=== PATIENT | male | born 1950 | race African-American/Black ===

== ENCOUNTER 2018-08-26 15:53 | Emergency (ER) | payer OTHER ==
[~2018-08-26] VITALS: Ht 175.3 cm; Wt 83.5 kg
[~2018-08-26 15:53] MED LIST: CYCL10TA2 PO; NAPR-695 PO
--- NOTE | 2018-08-26 17:23 | PHYS DOC ---
Past Medical History Past Medical History: No Pertinent History Past Surgical History: Other Additional Past Surgical Histo: bilat cataract surgery Alcohol Use: Occasionally Drug Use: None Adult General Chief Complaint Chief Complaint: GROIN PAIN HPI HPI Patient is a 68 year old male presents to the ER with right-sided groin pain has been ongoing for 6 months. 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 The patient states his pain as 4 out of 10 and intermittent in nature. Denies any fever. Not tried any medications at home. Review of Systems Review of Systems Constitutional: Denies fever or chills [] Eyes: Denies change in visual acuity, redness, or eye pain [] HENT: Denies nasal congestion or sore throat [] Respiratory: Denies cough or shortness of breath [] Cardiovascular: No additional information not addressed in HPI [] GI: Denies abdominal pain, nausea, vomiting, bloody stools or diarrhea [] : Denies dysuria or hematuria [] Musculoskeletal: Reports lower right back pain but denies joint pain [] Integument: Denies rash or skin lesions [] Neurologic: Denies headache, focal weakness or sensory changes [] Endocrine: Denies polyuria or polydipsia [] Complete systems were reviewed and found to be within normal limits, except as documented in this note. Allergies Allergies Allergies Coded Allergies Type Severity Reaction Last Updated Verified No Known Drug Allergies 08/26/18 No Physical Exam Physical Exam Constitutional: Well developed, well nourished, no acute distress, non-toxic appearance. [] HENT: Normocephalic, atraumatic, bilateral external ears normal, oropharynx moist, no oral exudates, nose normal. [] Eyes: PERRLA, EOMI, conjunctiva normal, no discharge. [] Neck: Normal range of motion, no tenderness, supple, no stridor. [] Cardiovascular:Heart rate regular rhythm, no murmur [] Lungs & Thorax: Bilateral breath sounds clear to auscultation [] Abdomen: Bowel sounds normal, soft, no tenderness, no masses, no pulsatile masses. [] Skin: Warm, dry, no erythema, no rash. [] Back: Lower right tenderness, no CVA tenderness. [] : Non tender on palpation, no rash or other abnormalities noted. Extremities: No tenderness, no cyanosis, no clubbing, ROM intact, no edema. [] Neurologic: Alert and oriented X 3, normal motor function, normal sensory function, no focal deficits noted. [] Psychologic: Affect normal, judgement normal, mood normal. [] Current Patient Data Vital Signs Vital Signs Date Time Temp Pulse Resp B/P (MAP) Pulse Ox O2 Delivery O2 Flow Rate FiO2 08/26/18 18:00 64 18 130/63 (85) 98 Room Air 08/26/18 16:50 97.8 97.8 Lab Values Laboratory Tests Test 08/26/18 18:00 Urine Collection Type Unknown Urine Color Yellow Urine Clarity Cloudy Urine pH 6.0 Urine Specific [place] 1.025 Urine Protein Negative mg/dL (NEG-TRACE) Urine Glucose (UA) Negative mg/dL (NEG) Urine Ketones (Stick) Negative mg/dL (NEG) Urine Blood Trace (NEG) Urine Nitrite Negative (NEG) Urine Bilirubin Negative (NEG) Urine Urobilinogen Dipstick 1.0 mg/dL (0.2 mg/dL) Urine Leukocyte Esterase Negative (NEG) Urine RBC 0 /HPF (0-2) Urine WBC 0 /HPF (0-4) Urine Bacteria 0 /HPF (0-FEW) Urine Mucus Mod /LPF EKG EKG [] Radiology/Procedures Radiology/Procedures [][address] [address] IMAGING REPORT Signed PATIENT: RAYSA PORTILLO ACCOUNT: [id number] : 1950 LOCATION: ER AGE: 68 SEX: M EXAM STATUS: REG ER ORD. PHYSICIAN: GRAY JOHN APRN REASON: RT GROIN AND SCROTAL PAIN PROCEDURE: TESTICULAR/SCROTUM Scrotal ultrasound 08/26/2018 CLINICAL HISTORY: Right groin and scrotal pain for months. TECHNIQUE: Using a combination of real-time ultrasound imaging and color-flow and pulse Doppler imaging techniques, duplex evaluation of the scrotal sac and its contents was performed. Multiple images were obtained. FINDINGS: Both testicles are within normal limits in size and echogenicity. The right testicle measures 4.3 x 3.0 x 1.7 cm in longitudinal, transverse, and AP dimensions. The left testicle measures 4.4 x 2.6 x 1.9 cm in size. No focal abnormality of either testicle is seen. Normal color-flow and pulse Doppler imaging to both testicles is noted. Both epididymal heads are within normal limits in size and echogenicity. No hydrocele or varicocele is seen. Additional real-time ultrasound examination of the right inguinal region was performed. No hernia is seen. Prominent reactive right inguinal lymph nodes are seen which measure 1.5 to 2.6 cm in size. IMPRESSION: Negative study. Electronically signed by: Jesus Diaz MD (08/26/2018 6:22 PM) [facility] DICTATED and SIGNED BY: JESUS DIAZ MD DATE: 08/26/181821 Course & Med Decision Making Course & Med Decision Making Pertinent Labs and Imaging studies reviewed. (See chart for details) Will get ultrasound, and UA. Patient is agreeable. Ultrasound is negative. Urine is negative. GC Chlamydia is pending. Will d/c home. Dragon Disclaimer Dragon Disclaimer This electronic medical record was generated, in whole or in part, using a voice recognition dictation system. Departure Departure Impression: Primary Impression: Groin pain Disposition: HOME, SELF-CARE Condition: STABLE Referrals: RUDY BRYAN (PCP) Patient Instructions: Groin Strain Additional Instructions: Thank you for visiting [facility]. We appreciate you trusting us with your care. If any additional problems come up don't hesitate to return to visit us. Please follow up with your primary care provider so they can plan additional care if needed and know about the problem that you had. If symptoms worsen come back to the Emergency Department. Any concerning symptoms that start such as chest pain, shortness of Air, weakness or numbness on one side of the body, running high fevers or any other concerning symptoms return to the ER. Problem Qualifiers Primary Impression: Groin pain Laterality: unspecified laterality Qualified Codes: R10.30 - Lower abdominal pain, unspecified GRAY JOHN APRN Aug 26, 2018 17:22
[2018-08-26 18:00] VITALS: BP 130/63
[2018-08-26 18:08] LABS: BILIRUBIN,URINE NEGATIVE (NEG); CLARITY,URINE CLOUDY; COLOR,URINE YELLOW; NITRITE,URINE NEGATIVE (NEG); PROTEIN,URINE NEGATIVE (NEG-TRACE)
[2018-08-26 18:15] LABS: BACTERIA,URINE 0 /HPF (0-FEW); RBC,URINE 0 /HPF (0-2); WBC,URINE 0 /HPF (0-4)
--- NOTE | 2018-08-26 18:25 | RAD ---
Scrotal ultrasound 08/26/2018 CLINICAL HISTORY: Right groin and scrotal pain for months. TECHNIQUE: Using a combination of real-time ultrasound imaging and color-flow and pulse Doppler imaging techniques, duplex evaluation of the scrotal sac and its contents was performed. Multiple images were obtained. FINDINGS: Both testicles are within normal limits in size and echogenicity. The right testicle measures 4.3 x 3.0 x 1.7 cm in longitudinal, transverse, and AP dimensions. The left testicle measures 4.4 x 2.6 x 1.9 cm in size. No focal abnormality of either testicle is seen. Normal color-flow and pulse Doppler imaging to both testicles is noted. Both epididymal heads are within normal limits in size and echogenicity. No hydrocele or varicocele is seen. Additional real-time ultrasound examination of the right inguinal region was performed. No hernia is seen. Prominent reactive right inguinal lymph nodes are seen which measure 1.5 to 2.6 cm in size. IMPRESSION: Negative study. Electronically signed by: Jesus Diaz MD (08/26/2018 6:22 PM) [facility]
== END 2018-08-26 18:35 | disposition home or self-care (01) ==
LOC: ER 15:53
DX: R10.30 Lower abdominal pain, unspecified (principal); N50.82 Scrotal pain; M54.5 Low back pain
CPT/HCPCS: 76870; 81001; 87491; 87591; 99285-25